=== PATIENT | female | born 1970 | race Caucasian/White ===

== ENCOUNTER 2018-06-16 13:08 | Emergency (ER) | payer OTHER ==
[~2018-06-16] VITALS: Ht 170.2 cm; Wt 77.1 kg
[2018-06-16 13:13] VITALS: Ht 170.2 cm; Wt 77.1 kg
[2018-06-16 15:33] VITALS: BP 129/84
== END 2018-06-16 15:33 | disposition home or self-care (01) ==
LOC: ED 13:08
DX: J40 Bronchitis, not specified as acute or chronic (principal)
CPT/HCPCS: J7512; J7613; J7644; Q0092